=== PATIENT | female | born 1980 ===

== ENCOUNTER 2023-09-20 20:01 | Emergency (ER) | payer OTHER ==
[~2023-09-20] VITALS: Ht 157.5 cm; Wt 70.0 kg
[2023-09-20 20:07] VITALS: BP 113/77; PULSE 92; RESP 18; TEMP 98.2; O2SAT 95
[2023-09-20] MEDS ORDERED: VISCOUS LIDOCAINE 2% 15 ML UDC PO NR (20:45)
[2023-09-20] MEDS ORDERED: BACITRACIN ZINC OINT UDPKT TOP ONE (20:45)
[2023-09-20] MEDS ORDERED: LIDOCAINE HCL/PF 1% 10 MG/ML 5ML VIAL INFIL ONE (20:45)
[2023-09-20] MEDS ORDERED: IBUPROFEN 600MG TABLET PO ONE (21:30)
== END 2023-09-20 22:15 ==
LOC: ER 20:01
DX: S01.511A Laceration without foreign body of lip, initial encounter (principal); X58.XXXA Exposure to other specified factors, initial encounter; Y93.89 Activity, other specified; Y92.89 Other specified places as the place of occurrence of the external cause; Y99.8 Other external cause status
CPT/HCPCS: 99283; J3490